=== PATIENT | female | born 1960 | race Caucasian/White ===

== ENCOUNTER 2016-09-14 21:17 | Emergency (ER) | payer OTHER ==
[~2016-09-14] VITALS: Ht 157.5 cm; Wt 131.4 kg
[~2016-09-14 21:17] MED LIST: ALLEGRA ALLERG180 MG PO; BABY ASPIRIN81 M1; BENICAR HCT 201 EACH PO; CELEXA20 MG PO; CITALOPRAM HBR20 MG PO; DITROPAN5 MG PO; ENDOCET 5-3251 EACH PO; FEXOFENADINE H180 MG PO; FOLIC ACID1 MG PO; FOLVITE1 M1 PO; FUROSEMIDE20 MG PO; Folvite PO; HYDROCHLOROTHIA25 MG; Hydrodiuril,Oretic,E PO; K-DUR20 MEQ PO; LASIX20 MG PO; MOBIC7.5 MG PO; MOTRIN800 MG PO; MYRBETRIQ25 MG PO; NAPROSYN500 MG PO; NAPROXEN500 MG PO; NEBULIZER MC; NEURONTIN300 MG PO; NOHOMEMEDS; NORCO 5/3251 TABLET PO; OMEPRAZOLE40 M1 PO; PREDNISONE20 MG PO; PRINIVIL20 MG PO; PROVENTIL HFA6.7 GM IH; PROVENTIL,2.5 MG/3 M IH; RELAFEN500 M1 PO; REQUIP0.25 MG PO; TRAMADOL HCL50 MG PO; VALIUM2 MG PO; VENTOLIN HFA18 GM IH; Vitamin B-12 PO; ZOCOR80 M1 PO; ZOFRAN4 MG PO; Zocor PO
[2016-09-14 23:41] VITALS: BP 154/75
== END 2016-09-14 23:42 | disposition home or self-care (01) ==
LOC: EME 21:17 → RME 21:17
DX: S93.402A Sprain of unspecified ligament of left ankle, initial encounter (principal); X50.9XXA Other and unspecified overexertion or strenuous movements or postures, initial encounter; I10 Essential (primary) hypertension; E66.01 Morbid (severe) obesity due to excess calories; Z68.43 Body mass index [BMI] 50.0-59.9, adult
CPT/HCPCS: 73610; 99281; 99284

== ENCOUNTER 2017-07-21 21:22 | Emergency (ER) | payer OTHER ==
[~2017-07-21] VITALS: Ht 167.6 cm; Wt 136.3 kg
[2017-07-21 22:46] VITALS: BP 146/78
== END 2017-07-21 22:47 | disposition home or self-care (01) ==
LOC: EME 21:22
DX: S83.92XA Sprain of unspecified site of left knee, initial encounter (principal); X50.1XXA Overexertion from prolonged static or awkward postures, initial encounter; I10 Essential (primary) hypertension; Z88.0 Allergy status to penicillin
CPT/HCPCS: 73564; 99281; 99284